=== PATIENT | female | born 1970 ===

== ENCOUNTER 2017-01-13 10:38 | Emergency (ER) | payer MEDICARE, OTHER ==
[2017-01-13 10:51] VITALS: BMI 31.8
[2017-01-13 10:55] VITALS: TEMP 99; O2SAT 97
--- NOTE | 2017-01-13 11:32 | ED PDOC ---
Arrival/HPI - General Chief Complaint: Breast Problem Time Seen by Provider: 01/13/17 10:58 - History of Present Illness Narrative History of Present Illness (Text): 01/13/17 11:28 Pt is a 46 year old female with past medical history significant for hysterectomy and breast reducution s/p 2 days who complains of a burning sensation of her breasts. She reports feeling the burning sensation for the past 24 hours. She denies any radiation of the pain, shob, chest pain or diarrhea. Pt reports having subjective elevated temperature at home last evening. She reports the pain is 4/10. She is taking aleve for pain control. She is currently taking her prescribed antibiotics from her surgeon and is scheduled for follow up with her surgeon on 01/17/2017. (Kade Lopez) Past Medical History - Provider Review Nursing Documentation Reviewed: Yes - Past History Past History: No Previous - Infectious Disease Hx of Infectious Diseases: None - Tetanus Immunization Tetanus Immunization: Unknown - Past Medical History Past Medical History: No Previous - Cardiac Hx Cardiac Disorders: No - Pulmonary Hx Respiratory Disorders: No - Neurological Hx Neurological Disorder: No - HEENT Hx HEENT Disorder: Yes - Renal Hx Renal Disorder: No - Endocrine/Metabolic Hx Endocrine Disorders: No - Hematological/Oncological Hx Blood Disorders: No Hx AIDS: No Hx Hepatitis C: No - Integumentary Hx Dermatological Disorder: No - Musculoskeletal/Rheumatological Hx Falls: No - Gastrointestinal Hx Gastrointestinal Disorders: Yes (CONSTIPATION) - Genitourinary/Gynecological Hx Genitourinary Disorders: Yes - Psychiatric Hx Depression: Yes (denies suicidal ideations) Hx Substance Use: No - Past Surgical History Past Surgical History: No Previous - Surgical History Other/Comment: so lynch. breast reduction. "uterus removed" - Anesthesia Hx Anesthesia: Yes Hx Anesthesia Reactions: No Hx Malignant Hyperthermia: No - Suicidal Assessment Feels Threatened In Home Enviroment: No Family/Social History Family/Social History: No Known Family HX Smoking Status: Current Some Days Smoker Hx Alcohol Use: Yes Hx Substance Use: No Hx Substance Use Treatment: No Allergies/Home Meds Allergies/Adverse Reactions: Allergies No Known Allergies Allergy (Verified 01/13/17 10:51) Home Medications: Home Meds Medication Instructions Recorded Confirmed Cephalexin [cephalexin] 500 mg PO QID 01/13/17 01/13/17 Review of Systems - Physician Review All systems were reviewed & negative as marked: Yes - Review of Systems Constitutional: Fevers (subjective last evening) Respiratory: absent: SOB, Cough Gastrointestinal: absent: Abdominal Pain, Constipation, Diarrhea Musculoskeletal: absent: Back Pain, Neck Pain, Myalgias Skin: Other (bilateral breast reduction incisions dressed ). absent: Rash, Pruritis, Cellulitis Physical Exam Vital Signs Reviewed: Yes Temperature: Afebrile Blood Pressure: Normal Pulse: Tachycardic Respiratory Rate: Normal Appearance: Positive for: Well-Appearing Pain Distress: None Mental Status: Positive for: Alert and Oriented X 3 - Systems Exam Head: Present: Atraumatic, Normocephalic Pupils: Present: PERRL Extroacular Muscles: Present: EOMI Conjunctiva: Present: Normal Mouth: Present: Moist Mucous Membranes Neck: Present: Normal Range of Motion Respiratory/Chest: Present: Clear to Auscultation, Good Air Exchange. No: Respiratory Distress, Accessory Muscle Use Cardiovascular: Present: Regular Rate and Rhythm, Normal S1, S2. No: Murmurs Abdomen: Present: Normal Bowel Sounds. No: Tenderness, Distention, Peritoneal Signs Breast/Axillary: Present: Other (bilateral incisions for a breast reduction that are intact without signs of drainage of pus or elevated warmth or hardness with palpation, Exam preformed with female commercial sheet metal foreman present in room), Symmetrical. No: Nipple Discharge, Swelling Upper Extremity: Present: Normal Inspection. No: Cyanosis, Edema Lower Extremity: Present: Normal Inspection. No: Edema Neurological: Present: GCS=15, CN II-XII Intact, Speech Normal Skin: Present: Other (incision sites under bilateral breasts that are intact with signs of echymoses similar to that or post surgical intervention ) Psychiatric: Present: Alert, Oriented x 3, Normal Insight, Normal Concentration - Physical Exam Narrative Physical Exam (Text): 01/13/17 11:48 Exam of incision site under breasts was done with female commercial sheet metal foreman present ( Kade Lopez) Vital Signs Temp Pulse Resp BP Pulse Ox 01/13/17 11:41 89 18 121/73 97 01/13/17 10:54 99.0 F 98 H 17 122/75 97 Medical Decision Making ED Course and Treatment: 01/13/17 11:37 Impression: Mrs. Turcios is a 46 year old female who presents complaining of burning sensation of her breasts bilaterally for the past 24 hours after breast reduction surgery s/p 2 days. Differential Diagnosis included but are not limited to: - Wound check Plan: - Clean and redress surgical sites - Advise to follow up with surgeon for wound check - Reassess and disposition Progress Notes: (Kade Lopez) In agreement with resident note which contains more details about the patient. Patient was seen and evaluated with resident. Came up with plan and treatment together. (Tyler Cassidy DO) - PA / STRAP MAKER / Resident Statement DENICE has reviewed & agrees with the documentation as recorded. DENICE has examined the patient and agrees with the treatment plan. Disposition/Present on Arrival - Present on Arrival Any Indicators Present on Arrival: No History of DVT/PE: No History of Uncontrolled Diabetes: No Urinary Catheter: No History of Decub. Ulcer: No History Surgical Site Infection Following: None - Disposition Have Diagnosis and Disposition been Completed?: Yes Disposition Time: 11:39 - Disposition Diagnosis: Visit for wound check Disposition: HOME/ ROUTINE Condition: GOOD Discharge Instructions (ExitCare): Care For Your Stitches (ED) Additional Instructions: Petra, thank you for letting us take care of you today. Your provider was Dr. Lopez. You were treated for surgical wound check. The emergency medical care you received today was directed at your acute symptoms. If you were prescribed any medication, please fill it and take as directed. It may take several days for your symptoms to resolve. Return to the Emergency Department if your symptoms worsen, do not improve, or if you have any other problems. Please contact your doctor or call one of the physicians/clinics you have been referred to that are listed on the Patient Visit Information form that is included in your discharge packet. Bring any paperwork you were given at discharge with you along with any medications you are taking to your follow up visit. Our treatment cannot replace ongoing medical care by a primary care provider (PCP) outside of the emergency department. Thank you for allowing the [facility] team to be part of your care today. Follow up with surgeon for scheduled wound check. Referrals: Adilson Ordoñez MD [Primary Care Provider] - Follow up with primary
[2017-01-13 11:42] VITALS: BP 121/73; PULSE 89; RESP 18
== END 2017-01-13 12:31 | disposition home or self-care (01) ==
LOC: ED 10:38
DX: Z51.89 Encounter for other specified aftercare (principal)

== ENCOUNTER 2017-01-23 23:23 | Emergency (ER) | payer MEDICARE, OTHER ==
[2017-01-23 23:24] VITALS: BMI 31.8
[2017-01-24 00:14] VITALS: BP 114/88; PULSE 80; RESP 17; TEMP 98.4; O2SAT 97
--- NOTE | 2017-01-24 01:21 | ED PDOC ---
Arrival/HPI - General Chief Complaint: Breast Problem Time Seen by Provider: 01/24/17 00:13 Historian: Patient - History of Present Illness Narrative History of Present Illness (Text): 01/24/17 01:17 Petra Turcios is a 46 year old female who presents to the emergency department for evaluation of discharge from breast s/p recent breast reduction which was performed approximately 10 days prior. States that she noted some slight bloody discharge and possible purulent discharge from one of the suture sites. Denies any breast tenderness, surrounding erythema, or swelling. States she has follow up with surgeon tomorrow morning. Denies fever, chills, headache , dizziness, nausea, vomiting, diarrhea, shortness of breath, urinary symptoms, or any other complaints at this time. Severity Level: Mild Activities at Onset: Light Past Medical History - Provider Review Nursing Documentation Reviewed: Yes - Past History Past History: No Previous - Infectious Disease Hx of Infectious Diseases: None - Tetanus Immunization Tetanus Immunization: Unknown - Past Medical History Past Medical History: No Previous - Cardiac Hx Cardiac Disorders: No - Pulmonary Hx Respiratory Disorders: No - Neurological Hx Neurological Disorder: No - HEENT Hx HEENT Disorder: Yes - Renal Hx Renal Disorder: No - Endocrine/Metabolic Hx Endocrine Disorders: No - Hematological/Oncological Hx Blood Disorders: No Hx AIDS: No Hx Hepatitis C: No - Integumentary Hx Dermatological Disorder: No - Musculoskeletal/Rheumatological Hx Falls: No - Gastrointestinal Hx Gastrointestinal Disorders: Yes (CONSTIPATION) - Genitourinary/Gynecological Hx Genitourinary Disorders: Yes - Psychiatric Hx Substance Use: No - Past Surgical History Past Surgical History: No Previous - Surgical History Hx Breast Biopsy: (breast reduction rachael) Hx Hysterectomy: Yes Other/Comment: so lynch. breast reduction - Anesthesia Hx Anesthesia: Yes Hx Anesthesia Reactions: No Hx Malignant Hyperthermia: No - Suicidal Assessment Feels Threatened In Home Enviroment: No Family/Social History - Physician Review Nursing Documentation Reviewed: Yes Family/Social History: No Known Family HX Smoking Status: Former Smoker Hx Alcohol Use: Yes Frequency of alcohol use: Socially Hx Substance Use: No Hx Substance Use Treatment: No Allergies/Home Meds Allergies/Adverse Reactions: Allergies No Known Allergies Allergy (Verified 01/24/17 00:09) Review of Systems - Physician Review All systems were reviewed & negative as marked: Yes - Review of Systems Constitutional: Normal. absent: Fatigue, Fevers Cardiovascular: Normal. absent: Chest Pain, Palpitations Gastrointestinal: Normal. absent: Abdominal Pain, Diarrhea, Nausea, Vomiting Skin: Other (slight bloody discharge from breast. ) Neurological: Normal. absent: Headache, Dizziness Physical Exam Vital Signs Reviewed: Yes Vital Signs Temp Pulse Resp BP Pulse Ox 01/24/17 00:10 98.4 F 80 17 114/88 97 Temperature: Afebrile Blood Pressure: Normal Pulse: Regular Respiratory Rate: Normal Appearance: Positive for: Well-Appearing, Non-Toxic, Comfortable Pain Distress: None Mental Status: Positive for: Alert and Oriented X 3 - Systems Exam Head: Present: Atraumatic, Normocephalic Pupils: Present: PERRL Conjunctiva: Present: Normal Mouth: Present: Moist Mucous Membranes Respiratory/Chest: Present: Clear to Auscultation, Good Air Exchange, Other (No chest wall tenderness. Suture lines are close. No evidence of dehiscence of suture line. Dried scab wounds. Small area of dired blood midline left breast suture. No active discharge/bleeding. No nipple discharge.Minimal redness near right mid suture line. No swelling. ). No: Respiratory Distress, Accessory Muscle Use Cardiovascular: Present: Regular Rate and Rhythm, Normal S1, S2. No: Murmurs Abdomen: Present: Normal Bowel Sounds. No: Tenderness, Distention, Peritoneal Signs Neurological: Present: GCS=15, CN II-XII Intact, Speech Normal, Motor Func Grossly Intact, Normal Sensory Function Skin: Present: Warm, Dry, Normal Color. No: Rashes Psychiatric: Present: Alert, Oriented x 3, Normal Insight, Normal Concentration Medical Decision Making ED Course and Treatment: 01/24/17 01:25 Impression: A 46 year old female who presents to the emergency department complaining of scanty bloody discharge and purulent discharge from breasts following recent breast reduction surgery. Plan: -- Keflex -- Reassess and disposition Progress Notes: 01/24/17 01:27 Case discussed with iron handler covering agrees with the plan to start patient on prophylaxis antibiotics and recommends patient f/u tomorrow at surgeon's office. Patient advised to f/u with surgeon, whom she has an appointment with tomorrow. - Medication Orders Current Medication Orders: Discontinued Medications Cephalexin Monohydrate (Keflex) 500 mg PO ONCE STA PRN Reason: Protocol Stop: 01/24/17 01:21 - Scribe Statement The provider has reviewed the documentation as recorded by the Nitaibe Allyn Gil Provider Attestation: Provider Nitaibe Attestation: All medical record entries made by the Nitaibe were at my direction and personally dictated by me. I have reviewed the chart and agree that the record accurately reflects my personal performance of the history, physical exam, medical decision making, and the department course for this patient. I have also personally directed, reviewed, and agree with the discharge instructions and disposition. Disposition/Present on Arrival - Present on Arrival Any Indicators Present on Arrival: No History of DVT/PE: No History of Uncontrolled Diabetes: No Urinary Catheter: No History of Decub. Ulcer: No History Surgical Site Infection Following: None - Disposition Have Diagnosis and Disposition been Completed?: Yes Diagnosis: Status post breast reduction, Erythema of periwound skin Disposition: HOME/ ROUTINE Disposition Time: 01:37 Patient Plan: Discharge Condition: GOOD Additional Instructions: Antibiotics as prescribed/follow up with your doctor plastic surgeon tommorrow as scheduled Prescriptions: Cephalexin [cephalexin] 500 mg PO TID #21 cap Forms: Mochila (Malay)
== END 2017-01-24 01:51 | disposition home or self-care (01) ==
LOC: ED 23:23
DX: L53.8 Other specified erythematous conditions (principal); Z98.890 Other specified postprocedural states

== ENCOUNTER 2017-02-02 21:33 | Emergency (ER) | payer MEDICARE, OTHER ==
--- NOTE | 2017-02-02 22:21 | ED PDOC ---
Arrival/HPI - General Time Seen by Provider: 02/02/17 22:17 - History of Present Illness Narrative History of Present Illness (Text): 02/02/17 22:20 Patient's previous records reviewed, patient was in the emergency department on 01/23/17 with breast discharge after having surgery around 01/13/17. Patient was discharged home on 01/24/17 on prophylactic antibiotics and advised to follow-up with her surgeon in the next day. Pt presents today with L. breast discharge. States dc is liq/red tinged. Denies f/c, denies n/v. states she is on day 2 of taking augmentin. Denies other complaints. Past Medical History - Provider Review Nursing Documentation Reviewed: Yes - Past History Past History: No Previous - Infectious Disease Hx of Infectious Diseases: None - Tetanus Immunization Tetanus Immunization: Unknown - Past Medical History Past Medical History: No Previous - Cardiac Hx Cardiac Disorders: No - Pulmonary Hx Respiratory Disorders: No - Neurological Hx Neurological Disorder: No - HEENT Hx HEENT Disorder: Yes - Renal Hx Renal Disorder: No - Endocrine/Metabolic Hx Endocrine Disorders: No - Hematological/Oncological Hx Blood Disorders: No Hx AIDS: No Hx Hepatitis C: No - Integumentary Hx Dermatological Disorder: No - Musculoskeletal/Rheumatological Hx Falls: No - Gastrointestinal Hx Gastrointestinal Disorders: Yes (CONSTIPATION) - Genitourinary/Gynecological Hx Genitourinary Disorders: Yes - Psychiatric Hx Substance Use: No - Past Surgical History Past Surgical History: No Previous - Surgical History Hx Breast Biopsy: (breast reduction rachael) Hx Hysterectomy: Yes Other/Comment: so lynch. breast reduction - Anesthesia Hx Anesthesia: Yes Hx Anesthesia Reactions: No Hx Malignant Hyperthermia: No - Suicidal Assessment Feels Threatened In Home Enviroment: No Family/Social History Family/Social History: Unknown Family HX Smoking Status: Former Smoker Hx Alcohol Use: Yes Hx Substance Use: No Hx Substance Use Treatment: No Allergies/Home Meds Allergies/Adverse Reactions: Allergies No Known Allergies Allergy (Verified 01/24/17 00:09) Review of Systems - Physician Review All systems were reviewed & negative as marked: Yes - Review of Systems Skin: Other (breast discharge) Physical Exam Vital Signs Reviewed: Yes Vital Signs Temp Pulse Resp BP Pulse Ox 02/02/17 22:22 97.9 F 87 18 122/75 96 Temperature: Afebrile Blood Pressure: Normal Pulse: Regular Respiratory Rate: Normal Appearance: Positive for: Well-Appearing Pain Distress: None Mental Status: Positive for: Alert and Oriented X 3 - Systems Exam Head: Present: Atraumatic, Normocephalic Pupils: Present: PERRL. No: Sluggish Mouth: Present: Moist Mucous Membranes. No: Dry, Drooling Cardiovascular: Present: Regular Rate and Rhythm. No: Tachycardic Abdomen: No: Tenderness, Distention, Rebound, Guarding Back: No: Midline Tenderness, Paraspinal Tenderness Upper Extremity: Present: Normal Inspection. No: Cyanosis, Edema Lower Extremity: Present: NORMAL PULSES. No: Tenderness Neurological: Present: Speech Normal, Other (no focal neurological deficits) Skin: Present: Other (Antonella PICKARD present during examination. R. breast with dehiscence of skin. No tenderness or drainage. L. breast with serosanguinous drainage noted, no tenderness, no purulent drainage, no palpable mass/abscess, no fluctuance) Psychiatric: Present: Oriented x 3, Normal Insight, Normal Concentration. No: Anxious, Agitated Medical Decision Making ED Course and Treatment: 02/02/17 22:55 Patient in the emergency department with left serosanguinous breast drainage, states that she had breast reduction surgery last month. States that she is on day 2 of Augmentin at this time. Patient is nontoxic, no nausea or vomiting, afebrile, not tachycardic. Appears in no distress. States that she will be able to obtain a follow-up appointment with her surgeon for tomorrow. Patient was advised to follow up promptly with the specialist and to return to the emergency Department right away for inability to follow-up or for new or worsening symptoms. Patient states she feels comfortable being discharged home with outpatient follow-up. Dressing applied. Pt states she understands to return to the ER right away for new or worsening symptoms or for inability to f/u with PMD or specialist as instructed. Patient states that she fully agrees with and understands discharge instructions. States that she agrees with the plan and disposition. Verbalized and repeated discharge instructions and plan. I have given the patient opportunity to ask any additional questions. Disposition/Present on Arrival - Present on Arrival Any Indicators Present on Arrival: No History of DVT/PE: No History of Uncontrolled Diabetes: No Urinary Catheter: No History Surgical Site Infection Following: None - Disposition Have Diagnosis and Disposition been Completed?: Yes Diagnosis: Encounter for wound care Disposition: HOME/ ROUTINE Disposition Time: 22:58 Patient Plan: Discharge Condition: GOOD Discharge Instructions (ExitCare): Breast Abscess Drainage (ED) Additional Instructions: PLEASE RETURN TO THE EMERGENCY DEPARTMENT FOR NEW OR WORSENING SYMPTOMS. RETURN RIGHT AWAY IF YOU CANNOT FOLLOW UP WITH YOUR PRIMARY CARE DOCTOR, CLINIC, OR SPECIALIST TOMORROW PLEASE FOLLOW UP WITH YOUR BREAST SPECIALIST TOMORROW CONTINUE TAKING ANTIBIOTICS RETURN TO THE ER FOR FEVERS, CHILLS, NAUSEA, VOMITING, PAIN, OR IF YOU CANNOT FOLLOW UP INSTRUCTED
[2017-02-02 22:23] VITALS: BP 122/75; PULSE 87; RESP 18; TEMP 97.9; O2SAT 96
[2017-02-02 22:30] VITALS: BMI 31.1
== END 2017-02-02 23:00 | disposition home or self-care (01) ==
LOC: ED 21:33
DX: Z51.89 Encounter for other specified aftercare (principal)

== ENCOUNTER 2017-08-10 22:25 | Emergency (ER) | payer MEDICARE, MEDICAID ==
[2017-08-10 22:26] VITALS: BMI 31.1
== END 2017-08-10 23:56 | disposition left against medical advice (07) ==
LOC: ED 22:25
DX: Z02.89 Encounter for other administrative examinations (principal); Z00.00 Encounter for general adult medical examination without abnormal findings